=== PATIENT | male | born 1990 | race African-American/Black ===

== ENCOUNTER 2018-12-16 16:46 | Emergency (ER) | payer OTHER ==
[2018-12-16 17:10] VITALS: BP 132/87
--- NOTE | 2018-12-16 17:43 | ED Physician Documentation ---
PD HPI LOWER EXT INJURY - Stated complaint Stated Complaint: R LEG PAIN - Chief complaint Chief Complaint: Ext Problem - History obtained from History obtained from: Patient - History of Present Illness PD HPI LOW EXT INJURY LOCATION: Right, Upper leg Type of injury: Other (pulled muscle sprinting) Where injury occurred: Street Timing - onset: Today Timing - duration: Hours Timing - details: Abrupt onset, Still present Improved by: Rest, Immobilization Worsened by: Moving, Palpating Associated symptoms: No: Weakness, Numbness, Tingling Contributing factors: No: Anticoagulated, Prior ortho surgery Similar symptoms before: Diagnosis (pulled muscle) Recently seen: Not recently seen - Additional information Additional information: 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 He is now having to limp to walk. He did abrade his elbow but was otherwise uninjured. He has had similar injuries previously with pulled muscles he has not had this specific muscle pulled. Review of Systems Constitutional: denies: Fever Respiratory: denies: Cough GI: denies: Vomiting PD PAST MEDICAL HISTORY - Allergies Allergies/Adverse Reactions: Allergies Allergy/AdvReac Type Severity Reaction Status Date / Time No Known Drug Allergies Allergy Verified 12/16/18 17:10 PD ED PE NORMAL - Vitals Vital signs reviewed: Yes (hypertensive ) - General General: Alert and oriented X 3, No acute distress, Well developed/nourished - HEENT HEENT: Atraumatic, PERRL, EOMI - Respiratory Respiratory: No respiratory distress - Derm Derm: Normal color, Warm and dry, No rash - Extremities Extremities: No deformity, No edema, Other (There is point tenderness and firmness to the right upper thigh medially. The gait is favoring the right. 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 He is having some difficulty with walking we will provide some crutches. His biggest concern is his inability to participate in PRT scheduled for next week. Departure - Departure Disposition: 01 Home, Self Care Clinical Impression: Pulled muscle Condition: Stable Instructions: ED Strain Muscle Ext Follow-Up: SAUL Bingham [Provider Group] Forms: Activity restrictions
== END 2018-12-16 18:07 | disposition home or self-care (01) ==
LOC: ED 16:46
DX: S76.911A Strain of unspecified muscles, fascia and tendons at thigh level, right thigh, initial encounter (principal); X50.9XXA Other and unspecified overexertion or strenuous movements or postures, initial encounter; S50.319A Abrasion of unspecified elbow, initial encounter; W18.30XA Fall on same level, unspecified, initial encounter; Y93.02 Activity, running; Y92.410 Unspecified street and highway as the place of occurrence of the external cause
CPT/HCPCS: 99282; 99283